=== PATIENT | male | born 1960 | race Caucasian/White ===

== ENCOUNTER 2020-12-25 20:22 | Emergency (ER) | payer OTHER ==
[~2020-12-25] VITALS: Ht 172.7 cm; Wt 100.0 kg
[2020-12-25 20:34] VITALS: BP 126/75
--- NOTE | 2020-12-25 21:40 | NUR ---
PATIENT IS LYING ON GROUND AND STATES HE FEELS TIRED. TALKING ON PHONE AND COMPLAINING THAT HE CANNOT BREATHE. O2 SAT 97% ON ROOM AIR. RR 20/MIN. PATIENT STATES HE WANTS TO LEAVE AND DECIDED TO STAY FOR DIAGNOSTICS.
--- NOTE | 2020-12-25 21:43 | NUR ---
SECURITY SUMMONED FOR STAND BY THE PATIENT WAS BEING RUDE TO JENNIFER LAKHANI AND SWEARING.
--- NOTE | 2020-12-25 21:56 | NUR ---
DAUGHTER OF PATIENT CALLED TO STATE SHE IS UPSET. SHE FEELS HER DAD WAS TREATED WITH DISRESPECT WHEN HE WAS TOLD TO GET UP OFF OF THE GROUND. I WAS INFORMED THAT THE PATIENT WAS HOLLARING AT STAFF AND IT WAS MUTUAL HOLLARING, HOWEVER, ALL UNDER CONTROL NOW. LYNETTE PADILLA INFORMED THAT THE DAUGHTER STATES HER DAD IS VERY STOIC. RANDY WANTS COVID TO BE A RAPID TEST, LAB INFORMED. A SEND OUT COVID WAS DONE BUT KAR RODRIGUEZ IS REDOING THE COVID SWAB SO THAT A RAPID RESULT CAN BE OBTAINED. DAUGHTER CONCERNED ABOUT A BLOOD CLOT BECAUSE HER DAD COMPLAINS ABOUT SOB AND THAT HE IS SO STOIC HE NEVER COMLAINS ABOUT ANYTHING, AND SO THIS IS VERY UNUSUAL FOR HIM TO DO SO.
--- NOTE | 2020-12-25 22:09 | NUR ---
SECURITY WAS SUMMONED AGAIN. AFTER CONTROL OF THE SITUATION HE SAT DOWN IN HIS CHAIR AND HIM AND I HAD A CONVERSATION ABOUT HIS POC. INFORMED HIM THAT ANOTHER TEST WAS BEING DONE SO THE RESULTS WOULD BE IN AN HOUR. HE AGREED. PT. SWABBED. RANDY WAS OUT THERE AND INFORMED PT THAT IF HE IS + HE COULD GET MEDICINE FOR IT AND THAT HE SHOULD THINK ABOUT IT, AND WILL COME BACK TO SEE PATIENT IN A BIT. PT MAD THAT IT IS TAKING SO LONG. KEPT SAYING HE HAS BEEN HERE FOR 3-4 HOURS. ENCOURAGED PT TO UNDERSTAND THAT THERE ARE MANY SICK PATIENTS HERE AND THAT WE ARE DOING THE BEST WE CAN, BUT THAT OUTBURSTS LIKE THIS DO NOT HELP ANYONE INVOLVED.
--- NOTE | 2020-12-25 22:20 | NUR ---
PATIENT LEFT [facility] AND STATES HE IS GOING TO HIS CAR.
[2020-12-25] MEDS ORDERED: ALBU8HFA PO (23:13)
== END 2020-12-25 23:43 | disposition home or self-care (01) ==
LOC: ER 20:23
DX: U07.1 COVID-19 (principal); R11.0 Nausea; R06.02 Shortness of breath; R50.9 Fever, unspecified; R19.7 Diarrhea, unspecified; Z79.899 Other long term (current) drug therapy
CPT/HCPCS: 71045; 87635; 99284; C9803